=== PATIENT | female | born 2000 | race Two or more races ===

== ENCOUNTER 2023-08-02 14:56 | Emergency (ER) | payer MEDICAID, SELFPAY ==
[2023-08-02 15:00] VITALS: BP 124/85
[2023-08-02 16:20] VITALS: BP 128/80
--- NOTE | 2023-08-02 16:26 | ED.GENMED ---
History of Present Illness
General
Chief Complaint: Back Pain
Source: patient
Time Seen by Provider: 08/02/23 16:14
Travel History
Have you had any contact with someone who has COVID-19?: No
Do you have any symptoms of coronavirus? Fever > 100 degrees, chills, cough, shortness of breath, sore throat, loss of taste or smell, muscle aches, or headache?: No
History of Present Illness
History of Present Illness:
23-year-old female with no significant past medical history presenting to the emergency department for evaluation of lower back pain that has been ongoing for the last 8 months which she believes is related to a miscarriage that she had an December
although notes that she had the pain starting about a month prior to this. 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
little bit worse which is what prompted her to come to the ER today. She notes pain worsens with any movement. Really has not attempted any medications for pain as she states she does not like taking pain medication. She denies any fevers, bowel
or urinary incontinence saddle anesthesias, focal weakness or numbness, history of IV drug abuse, any heavy lifting/bending/twisting, or traumatic injuries.
Past History
Past History
ED Past Medical History: Other (Thalassemia)
ED Past Surgical History: None
Social History
Tobacco: Non-smoker
Alcohol: None
Drug: None
Personal: Single
Living: with family
Review of Systems
Review of Systems
All Other Systems: ROS reviewed and negative except as documented in HPI and ROS
Phy Exam
Physical Exam
Physical Exam:
GENERAL: Alert , in no apparent distress
EYE: clear conjunctiva b/l
NECK: Supple
ENT: o/p clr, mmm.
ABDOMEN: Soft, without focal tenderness, no r/g, no cvat
BACK: Normal range of motion but does complain of discomfort while performing range of motion, no focal tenderness, no midline bony tenderness, no rashes
NEUROLOGICAL: Alert and oriented, no focal neuro deficits. Patellar deep tendon reflexes intact and equal bilaterally, sensation grossly intact and equal to light touch bilateral lower extremities
SKIN: Warm and dry, skin intact.
MUSCULOSKELETAL: No edema, well perfused. EHL intact bilaterally
PSYCH: Normal and appropriate interaction.
Scores
Heart Failure Risk
Heart Failure Risk Score: Not Applicable
Heart Score for Chest Pain Patients
STEMI patient?: Not applicable
Withdrawal Assessment of Alcohol
Withdrawal Assessment Completed?: Not applicable
Course
Orders/Labs/Results
Orders:
Orders
08/02/23 16:26
CR Lumbar Spine Comp Min 4 Vw* Urgent
Comment:
Reason For Exam: low back pain
Vital Signs
Initial and Last Documented VS:
Initial Vital Signs
Temp Pulse Resp BP Pulse Ox
98.3 F 82 18 124/85 98
08/02/23 15:00 08/02/23 15:00 08/02/23 15:00 08/02/23 15:00 08/02/23 15:00
Last Documented Vital Signs
Temp Pulse Resp BP Pulse Ox
98.3 F 76 16 128/80 100
08/02/23 15:00 08/02/23 16:20 08/02/23 16:20 08/02/23 16:20 08/02/23 16:20
MDM/Problems Addressed
Differential Diagnosis Includes:
Musculoskeletal back pain, I do not have concern for as patient had a normal menstrual 2 weeks ago, I do not have concern for infectious etiology given her symptoms are overall unchanged as and have been ongoing for over 8 months
MDM/Problems Addressed:
23-year-old female presenting to the emergency department for evaluation of chronic back pain that has been ongoing for over 8 months, overall unchanged today but patient does note the pain seems to be a little bit worse. Has not attempted any
medications for pain relief other than intermittent Motrin or Tylenol which she states does help the pain but then the pain returns. There are no red flag symptoms including fevers, urinary or bowel incontinence, saddle anesthesia or any acute
neurologic symptoms. Overall I do not have any suspicion for emergent pathologies. Will check an x-ray as patient notes she has not had x-rays previously (this is contrary to the triage note) patient lives in [place]. I encouraged her to
follow-up closely with her primary care provider.
*Radiology
Radiology exam reviewed: preliminary read by ED provider (Normal lumbosacral x-ray)
*Pulse Oximetry
Patient hypoxic: no
*Critical Care Note
Total Time (30-74mins, 75-104mins- exclusive of procedures): Not Applicable
Patient Management
Escalation/DeEscalation of care consider admission/obs:
Patient's lumbosacral x-ray is unremarkable. I encouraged her to follow-up with her primary care provider when she returns to work where she lives permanently. Prescription for baclofen provided to be used as needed. Patient is otherwise stable
for discharge home and aware of return precautions to emergency department.
ED Attending Note
-
Portions of this chart may have been created with voice recognition software.� Occasional wrong word or��sound alike� substitutions may have occurred due to the inherent limitations of voice recognition software.
Discharge Plan
Departure
Patient Disposition: Home (Routine Discharge)
Date of Disposition: 08/02/23
Time of Disposition: 16:58
Patient with high blood pressure during this ER visit?: No
Discharge Problem:
Low back pain
Instructions: Low Back Pain (DC)
Prescriptions:
New
baclofen 5 mg tablet
5 mg PO BID PRN (Reason: muscle spasm) Qty: 10 0RF
Referrals:
UNKNOWN - PT DOES,NOT KNOW [Family Provider] -
Interventions
Interventions:
*Risk Screen - Suicide Last Done: 08/02/23 16:20
*General Assessment Last Done: 08/02/23 16:20
*Neglect/Abuse Screening Last Done: 08/02/23 16:20
ED- Fall Risk Assessment Last Done: 08/02/23 16:20
*ED COVID-19 Vaccine History Last Done: 08/02/23 15:00
*Nursing Disposition Last Done: 08/02/23 17:10
ED-Musculoskeletal Assessment Last Done: 08/02/23 16:20
Discharge Date and Time
Discharge Date/Time: 08/02/23 17:05
Print Language: WOLOF
--- NOTE | 2023-08-02 17:09 | EDRN ---
Discharge instructions given to patient by Jarrett Martinez PA-C.
== END 2023-08-02 17:05 | disposition home or self-care (01) ==
LOC: EMR 14:56
PROVIDERS: EMERGENCY PHYSICIAN Emergency Medicine
DX: M54.59 Other low back pain (principal); G89.29 Other chronic pain
CPT/HCPCS: 99283; 72110

== ENCOUNTER 2024-01-10 18:18 | Emergency (ER) | payer MEDICAID, SELFPAY ==
[2024-01-10 18:20] VITALS: BP 105/74
--- NOTE | 2024-01-10 19:40 | ED.GENMED ---
History of Present Illness
General
Chief Complaint: Cold/Flu/URI Symptoms
Source: patient
Time Seen by Provider: 01/10/24 19:32
History of Present Illness
History of Present Illness:
23-year-old otherwise healthy female presents 22 weeks with 4 days worth runny nose sore throat and headache. She also notes that she has not felt the baby move since yesterday. She notes lower abdominal pain but denies any vaginal
bleeding. No fevers. Her OB is in [place]. She was here visiting for a couple days. No known sick contacts. No other complaints
Past History
Past History
ED Past Medical History: Other (Thalassemia)
ED Past Surgical History: None
Social History
Tobacco: Non-smoker
Alcohol: None
Drug: None
Personal: Single
Living: with family
Phy Exam
Physical Exam
Physical Exam:
General: Well-appearing nontoxic female no acute respiratory
HEENT: Normocephalic atraumatic posterior pharynx without erythema or exudate neck is supple no adenopathy TMs normal no trismus or drooling
Heart: Regular rate and rhythm
Lungs: Clear no wheeze
Abdomen is gravid but nontender
Extremities: No cyanosis
Course
Orders/Labs/Results
Orders:
Orders
01/10/24 19:25
COVID-19 Antigen Urgent
Source: Nasal Swab
Influenza A+B Rapid Molecular Urgent
HENRRY Source: Nasal Swab
Specimen Description:
01/10/24 19:40
US Limited Urgent
Reason For Exam: no palpable motion
Vital Signs
Initial and Last Documented VS:
Initial Vital Signs
Temp Pulse Resp BP Pulse Ox
97.8 F 86 16 105/74 95
01/10/24 18:20 01/10/24 18:20 01/10/24 18:20 01/10/24 18:20 01/10/24 18:20
Last Documented Vital Signs
Temp Pulse Resp BP Pulse Ox
97.8 F 86 16 105/74 95
01/10/24 18:20 01/10/24 18:20 01/10/24 18:20 01/10/24 18:20 01/10/24 18:20
MDM/Problems Addressed
Differential Diagnosis Includes:
Runny nose sore throat slight headache. She is nontoxic afebrile vital signs stable consider viral illness. COVID and flu test pending. She also notes no motion over the past day. heart tones obtained by nurse. Will obtain
ultrasound as well
*Critical Care Note
Total Time (30-74mins, 75-104mins- exclusive of procedures): Not Applicable
Update Note
Update Note:
COVID and flu are negative. Suspect underlying viral illness. Ultrasound was demonstrating a fetus in the uterus measuring 22 weeks and 1 day with a heart rate in the 140s. No abnormalities found. Reassured patient. Stable for
ED Attending Note
-
Portions of this chart may have been created with voice recognition software.� Occasional wrong word or��sound alike� substitutions may have occurred due to the inherent limitations of voice recognition software.
Discharge Plan
Departure
Patient Disposition: Home (Routine Discharge)
Date of Disposition: 01/10/24
Time of Disposition: 21:23
Patient with high blood pressure during this ER visit?: No
Discharge Problem:
URI (upper respiratory infection)
Instructions: Viral Upper Respiratory Infection, Adult (DC)
Prescriptions:
No Action
baclofen 5 mg tablet
5 mg PO BID PRN (Reason: muscle spasm) Qty: 10 0RF
Referrals:
UNKNOWN - PT DOES,NOT KNOW [Unknown Provider] -
Activity Restrictions/Additional Instructions:
You may use Tylenol for pain. Stay hydrated and drink plenty of water. 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
Interventions
Interventions:
*Risk Screen - Suicide Last Done: 01/10/24 18:22
*General Assessment Last Done: 01/10/24 18:22
*Neglect/Abuse Screening Last Done: 01/10/24 18:22
*ED COVID-19 Vaccine History Last Done: 01/10/24 18:22
Discharge Date and Time
Print Language: [id number]
[2024-01-10 19:54] LABS: COVID-19 Antigen Negative (Negative)
== END 2024-01-10 21:55 | disposition home or self-care (01) ==
LOC: EMR 18:18
PROVIDERS: EMERGENCY PHYSICIAN Emergency Medicine
DX: O26.892 Other specified pregnancy related conditions, second trimester (principal); J06.9 Acute upper respiratory infection, unspecified; Z3A.22 22 weeks gestation of pregnancy; Z11.52 Encounter for screening for COVID-19
CPT/HCPCS: 99284; 76815; 87502; 87811